=== PATIENT | female | born 1990 | race Hispanic/Latino ===

== ENCOUNTER 2019-06-19 17:31 | Inpatient (IN) | payer OTHER ==
[~2019-06-19] VITALS: Ht 157.5 cm; Wt 103.7 kg
[2019-06-19] MEDS ORDERED: ONDANSETRON HCL 4 MG/2 ML VIAL ONE (18:14)
[2019-06-19] MEDS ORDERED: MORPHINE SULFATE 4 MG/1ML SYG ONE ×2 (18:14→20:22)
[2019-06-19] MEDS ORDERED: SODIUM CHLORIDE 0.9% 1000ML 1,000 ML IV ONE ×2 (18:14→21:03)
[2019-06-19 18:22] LABS: BASOPHILS % (AUTO) 0.4 % (0.0-5.0); EOSINOPHILS % (AUTO) 0.4 % (0.0-8.0); HEMATOCRIT 39.6 % (36-48); LYMPHOCYTES % (AUTO) 8.6 % (21.0-51.0); MEAN CORPUSCULAR HEMOGLOBIN 27.7 pg (27.0-33.0); MEAN CORPUSCULAR HGB CONC 33.3 g/dL (32.0-36.0); MEAN CORPUSCULAR VOLUME 83.2 fL (79-99); MONOCYTES % (AUTO) 3.6 % (3.0-13.0); PLATELET COUNT (AUTO) 333 K/uL (130-400); RED BLOOD CELL COUNT(AUTO) 4.76 MIL/uL (4.00-5.50); RED CELL DISTRIBUTION WIDTH 12.9 % (11.0-15.5); WHITE BLOOD COUNT (AUTO) 15.9 K/uL (4.8-10.8)
[2019-06-19 18:30] LABS: CREATININE 0.8 mg/dL (0.5-1.5); POTASSIUM 3.8 mmol/L (3.5-5.1)
[2019-06-19 18:35] LABS: BILIRUBIN,TOTAL 0.4 mg/dL (0.2-1.0); TOTAL PROTEIN, SERUM 8.4 g/dL (6.0-8.3)
[2019-06-19 18:35] LABS: APPEARANCE,URINE Clear (CLEAR); BILIRUBIN,URINE Negative (NEGATIVE); COLOR,URINE Yellow (YELLOW); GLUCOSE, URINE (UA) Negative (NEGATIVE); KETONES,URINE Negative (NEGATIVE); LEUKOCYTE ESTERASE ,URINE Trace (NEGATIVE); NITRATE,URINE Negative (NEGATIVE); OCCULT BLOOD,URINE Negative (NEGATIVE); PROTEIN,URINE Negative (NEGATIVE); UROBILINOGEN,URINE 0.2 mg/dL (0.2-1.0)
[2019-06-19 18:40] LABS: HCG,QUAL RESULT NEGATIVE (NEGATIVE)
[2019-06-19] MEDS ORDERED: IOHEXOL-350 75 ML VIAL IV ONE (18:47)
[2019-06-19 18:48] LABS: BACTERIA,URINE Few /HPF (None Seen); RBC,URINE 0-1 /HPF (0-1); SQUAMOUS EPITHELIAL CELL,UR Few /HPF (0-2)
[2019-06-19 18:49] LABS: MUCUS,URINE Rare LPF (None Seen)
[2019-06-19] MEDS ORDERED: ZOSYN 3.375GM+NS 50ML 50 ML IV ONE (20:21)
[2019-06-19] MEDS: SODIUM CHLORIDE 0.9% 1000ML 1,000 ML IV SCH ×2 (20:27→23:55)
[2019-06-19] MEDS ORDERED: ACETAMINOPHEN 325 MG TAB PO PRN ×2 (20:30)
[2019-06-19] MEDS ORDERED: LACTULOSE 20 GM/30 ML UDCUP PO PRN (20:30)
[2019-06-19] MEDS ORDERED: ONDANSETRON HCL 4 MG/2 ML VIAL IV PRN (20:30)
[2019-06-19] MEDS: ZOSYN 3.375GM+NS 50ML 50 ML IV SCH (21:00)
[2019-06-19] MEDS: FAMOTIDINE/PF 20 MG/2 ML VIAL IV SCH (21:00)
[2019-06-19] MEDS ORDERED: FAMOTIDINE/PF 20 MG/2 ML VIAL IV ONE (21:05)
[2019-06-19 23:20] VITALS: BP 116/75
[2019-06-20] VITALS (23 sets, daily range): BP systolic 99–128; BP diastolic 62–86
[2019-06-20] MEDS: MORPHINE SULFATE 2 MG/ML 1ML SYG IV PRN ×2 (00:29→05:36)
[2019-06-20] MEDS: SODIUM CHLORIDE 0.9% 1000ML 1,000 ML IV SCH ×5 (00:30→20:43)
[2019-06-20 04:54] LABS: BASOPHILS % (AUTO) 0.2 % (0.0-5.0); LYMPHOCYTES % (AUTO) 23.8 % (21.0-51.0); MEAN CORPUSCULAR HEMOGLOBIN 28.1 pg (27.0-33.0); MEAN CORPUSCULAR HGB CONC 33.5 g/dL (32.0-36.0); MEAN CORPUSCULAR VOLUME 83.7 fL (79-99); MONOCYTES % (AUTO) 6.2 % (3.0-13.0); NEUTROPHILS % (AUTO) 68.8 % (40.0-77.0); PLATELET COUNT (AUTO) 290 K/uL (130-400); RED CELL DISTRIBUTION WIDTH 12.5 % (11.0-15.5); WHITE BLOOD COUNT (AUTO) 10.5 K/uL (4.8-10.8)
[2019-06-20 05:03] LABS: CREATININE 0.7 mg/dL (0.5-1.5); POTASSIUM 3.7 mmol/L (3.5-5.1)
[2019-06-20] MEDS: ZOSYN 3.375GM+NS 50ML 50 ML IV SCH ×3 (05:36→20:43)
--- NOTE | 2019-06-20 08:00 | NUR ---
NOTE CAME IN WITH C/O ABDOMINAL PAIN. SHE WAS DX WITH APPENDICITIS. THERE IS A CONSULT WITH DR AGUIRRE, SURGEON. SHE HAS YET TO COME SEE THE PATIENT. I WILL PAGE AJ HER P.A. AND HAVE HIM REMIND HER ABOUT THE CONSULT FOR WE WERE TOLD SHE WAS CONSULTED IN ER. ABDOMEN SOFT, TENDER. NO N/V NO CHEST PAIN SOB.
[2019-06-20] MEDS ORDERED: MORPHINE SULFATE 2 MG/ML 1ML SYG IV PRN (08:30)
[2019-06-20] MEDS ORDERED: POTASSIUM CHLORIDE 10% ELIXIR 20 MEQ/15 ML UDCUP PO PRN (08:30)
[2019-06-20] MEDS ORDERED: POTASSIUM CHLORIDE 20MEQ/100ML 100 ML IV PRN ×2 (08:30)
[2019-06-20] MEDS ORDERED: POTASSIUM CHLORIDE 20 MEQ ERTAB PO PRN (08:30)
[2019-06-20] MEDS: ENOXAPARIN SODIUM 40 MG/0.4 ML SYRINGE SQ SCH (09:00)
[2019-06-20] MEDS ORDERED: FLU VACC QS2019-20 36MOS UP/PF 60 MCG/0.5 ML ML IM ONE (09:00)
--- NOTE | 2019-06-20 09:15 | NUR ---
NOTE AJ LAURENT CAME IN TO ASSESS PATIENT. HE SAID PATIENT WILL HAVE SURGERY TODAY ABOUT 2:00 PM. WILL ENTER ORDER AND OBTAIN CONSENT. PATIENT'S PARTNER AT HER SIDE.
[2019-06-20] MEDS: FAMOTIDINE/PF 20 MG/2 ML VIAL IV SCH ×2 (10:29→20:43)
[2019-06-20] MEDS ORDERED: PROPOFOL 10 MG/ML 20ML VIAL IV ONE (12:34)
[2019-06-20] MEDS ORDERED: MIDAZOLAM HCL 1 MG/ML 2ML VIAL ONE (12:34)
[2019-06-20] MEDS ORDERED: GLYCOPYRROLATE 1 MG/5 ML SYRINGE ONE (12:34)
[2019-06-20] MEDS ORDERED: NEOSTIGMINE 5MG/5ML SYR IV ONE (12:34)
[2019-06-20] MEDS ORDERED: SUCCINYLCHOLINE 200MG/10ML SYR ONE (12:34)
[2019-06-20] MEDS ORDERED: LIDOCAINE PF 2% 5ML ABBOJECT ONE (12:34)
[2019-06-20] MEDS ORDERED: LACTATED RINGERS 1000ML 1,000 ML IV ONE (12:35)
[2019-06-20] MEDS ORDERED: FENTANYL CITRATE PF 50 MCG/1 ML 2ML VIAL ONE ×2 (12:35→14:23)
[2019-06-20] MEDS ORDERED: ROCURONIUM 10MG/1ML SYR 10 MG/ML ML ONE (12:36)
--- NOTE | 2019-06-20 12:45 | NUR ---
SURGERY PATIENT IS OUT ROOM FOR SURGERY VIA BED. WAS C/O ABDOMINA PAIN AGAIN PRIOR TO LEAVING. SHE WAS MEDICATED EARLIER LESS THAT 2 HOURS AGO.
[2019-06-20] MEDS ORDERED: BUPIVACAINE/PF 0.5% 10ML VIAL ONE (13:20)
[2019-06-20] MEDS ORDERED: DEXAMETHASONE SOD PHOSPHATE 4 MG/ML 1ML VIAL ONE (13:24)
[2019-06-20] MEDS ORDERED: ONDANSETRON HCL 4 MG/2 ML VIAL ONE (13:24)
[2019-06-20] MEDS ORDERED: MEPERIDINE-PF 25 MG/ML SYG ONE (14:10)
[2019-06-20] MEDS ORDERED: KETOROLAC TROMETHAMINE 30MG/ML ONE (14:18)
[2019-06-20] MEDS ORDERED: ACETAMINOPHEN-CODEINE 300/30MG TAB PO PRN (18:15)
--- NOTE | 2019-06-20 19:33 | NUR ---
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 dcplan is back to home states no dc needs. Addendum: 06/20/19 at 1938 by APRYL FOLEY CM Amended: Links added.
[2019-06-21 04:20] VITALS: BP 97/57
[2019-06-21] MEDS: ZOSYN 3.375GM+NS 50ML 50 ML IV SCH ×2 (04:24→13:00)
[2019-06-21 04:27] LABS: BASOPHILS % (AUTO) 0.1 % (0.0-5.0); HEMATOCRIT 31.8 % (36-48); MEAN CORPUSCULAR HEMOGLOBIN 28.2 pg (27.0-33.0); MEAN CORPUSCULAR HGB CONC 33.9 g/dL (32.0-36.0); MEAN CORPUSCULAR VOLUME 83.2 fL (79-99); MONOCYTES % (AUTO) 4.5 % (3.0-13.0); NEUTROPHILS % (AUTO) 84.4 % (40.0-77.0); PLATELET COUNT (AUTO) 277 K/uL (130-400); RED BLOOD CELL COUNT(AUTO) 3.82 MIL/uL (4.00-5.50); RED CELL DISTRIBUTION WIDTH 12.6 % (11.0-15.5); WHITE BLOOD COUNT (AUTO) 10.2 K/uL (4.8-10.8)
[2019-06-21 04:47] LABS: CREATININE 0.8 mg/dL (0.5-1.5)
--- NOTE | 2019-06-21 07:30 | NUR ---
NOTE AAOX3. DENIES PAIN OR DISCOMFORT AT THIS TIME. CAME IN WITH C/O ABDOMINAL PAIN. UNDERWENT LAPAROSCOPIC APPENDECTOMY YESTERDAY. BOWEL SOUNDS PRESENT. TOLERATING DIET WELL. WAS ADVANCED TO REGULAR DIET THIS AM. DENIES SOB. BBS CLEAR TO ALL LOBES. DOES REPORT SMALL PHLEGMS AT TIMES. INSTRUCTED TO DEEP BREATHE AND COUGH AND TAUGHT HER TO BRACE HER ABDOMEN WHEN DOING SO. WILL DSICHARGE HOME TODAY IF OKAY WITH DR AGUIRRE. PATIENT HAS BEEN WALKING IN THE [place]. PARTNER AT HER SIDE.
[2019-06-21 07:59] VITALS: BP 109/52
[2019-06-21] MEDS ORDERED: AMOX-429 PO (08:05)
[2019-06-21] MEDS ORDERED: IBUP-2077 PO (08:05)
[2019-06-21] MEDS: ENOXAPARIN SODIUM 40 MG/0.4 ML SYRINGE SQ SCH (09:20)
[2019-06-21] MEDS: FAMOTIDINE/PF 20 MG/2 ML VIAL IV SCH (09:20)
[2019-06-21 12:00] VITALS: BP 112/70
[2019-06-21 16:10] VITALS: BP 117/65
[2019-06-21] MEDS ORDERED: FLU VACC QS2019-20 36MOS UP/PF 60 MCG/0.5 ML ML IM ONE (18:09)
--- NOTE | 2019-06-21 18:34 | NUR ---
note discharged home at this time. stable upon leaving. no distress or sob. mild abdominal discomfort. dressings to abdomen changed and all jessica secured in pace. no dehiscence. painted incisions with betadine and instructed patient on wound care and may shower tomorrow. verbalized understanding. refer to dc summary for details.
== END 2019-06-21 18:34 | disposition home or self-care (01) | DRG 342 ==
LOC: EDH 17:31 → EDHIP 20:27 → 3AH 22:31
PROVIDERS: ADMIT Internal Medicine; ATTEND Internal Medicine
PROC: 3E02340 Introduction of Influenza Vaccine into Muscle, Percutaneous Approach (ICD-10-PCS; 2019-06-20)
PROC: 0DTJ4ZZ Resection of Appendix, Percutaneous Endoscopic Approach (ICD-10-PCS; principal; 2019-06-20 13:13)
DX: K35.80 Unspecified acute appendicitis (principal); Z68.41 Body mass index [BMI] 40.0-44.9, adult; E66.9 Obesity, unspecified; Z88.8 Allergy status to other drugs, medicaments and biological substances; Z23 Encounter for immunization
CPT/HCPCS: 36415; 74177; 80048; 80053; 81001; 81025; 83690; 85025; 88304; 96365; G0008; G0378; J0330; J1100; J1650; J1885; J2001; J2175; J2250; J2270; J2405; J2543; J2704; J2710; J3010; J3490; J7030; J7120; Q2035; Q9967